=== PATIENT | male | born 1985 | race Caucasian/White ===

== ENCOUNTER 2021-11-10 21:06 | Inpatient (IN) | payer OTHER ==
[~2021-11-10] VITALS: Ht 182.9 cm; Wt 158.1 kg
[~2021-11-10 21:06] MED LIST: AMIT10; HYDACE5 PO; NAPR250; RXOXYACE PO
[2021-11-10 22:33] LABS: International Normalized Ratio 0.95
[2021-11-10 22:38] LABS: Alanine Aminotransfer (ALT/SGP 41 U/L (12-78); Albumin, Blood 3.3 g/dL (3.4-5.0); Albumin/Globulin Ratio 0.8 (0.8-1.8); Alk Phos 68 U/L (50-136); Anion Gap 7 mmol/L (6-16); Aspartate Aminotrans (AST/SGOT 35 U/L (12-37); Bilirubin, Total 0.7 mg/dL (0.1-1.0); Blood Urea Nitrogen 11 mg/dL (8-24); Bun/Creatinine Ratio 10.6 (12.0-20.0); CO2, Blood 32 mmol/L (21-32); Calcium, Blood 9.1 mg/dL (8.5-10.1); Chloride, Blood 100 mmol/L (98-108); Creatinine, Blood 1.04 mg/dL (0.60-1.20); Glomerular Filtration Rate >60 (60-); Glucose, Blood 108 mg/dL (70-99); Sodium, Blood 139 mmol/L (136-145); Total Protein, Blood 7.3 g/dL (6.4-8.2); Troponin I 0.024 ng/mL (0.000-0.040)
[2021-11-10 22:43] LABS: BASOPHILS ABSOLUTE AUTO 0.06 K/mm3 (0.00-0.23); BASOPHILS PERCENT AUTO 1 % (0-2); EOSINOPHILS ABSOLUTE AUTO 0.33 K/mm3 (0.00-0.68); EOSINOPHILS PERCENT AUTO 4 % (0-6); Hematocrit 34.9 % (37.0-53.0); IMMATURE GRAN ABSOLUTE AUTO 0.03 K/mm3 (0.00-0.10); IMMATURE GRAN PERCENT AUTO 0 % (0-1); LYMPHOCYTES ABSOLUTE AUTO 1.95 K/mm3 (0.84-5.20); LYMPHOCYTES PERCENT AUTO 20 % (21-46); MONOCYTES ABSOLUTE AUTO 0.58 K/mm3 (0.16-1.47); MONOCYTES PERCENT AUTO 6 % (4-13); Mean Corpuscular HGB 28.8 pg (26.0-34.0); Mean Corpuscular HGB Conc 34.4 g/dL (31.5-36.5); Mean Corpuscular Volume 84 fL (80-100); Mean Platelet Volume 10.2 fL (9.1-12.4); NEUTROPHILS PERCENT AUTO 69 % (41-73); Platelet Count 371 K/mm3 (150-400); RDW Coefficient Variation 13.2 % (11.7-14.2); RDW Standard Deviation 39.8 fL (35.1-46.3); Red Blood Cell Count 4.17 M/mm3 (4.30-5.90); White Blood Cell Count 9.55 K/mm3 (4.00-11.30)
[2021-11-11 04:20] LABS: Troponin I 0.024 ng/mL (0.000-0.040)
[2021-11-11 06:43] LABS: CHOL/HDL RATIO 4.2; Cholesterol 192 mg/dL (50-200); HDL Cholesterol 46 mg/dL (>39); LDL/HDL RATIO 2.8; Low Density Lipoprotein Chol 127 mg/dL (0-110); Triglycerides 95 mg/dL (30-140); Very Low Density Lipoprot Chol 19 mg/dL (6-28)
[2021-11-11 08:28] LABS: Influenza B, PCR NEGATIVE (NEGATIVE); Resp Syncytial Virus, PCR NEGATIVE (NEGATIVE); SARS-Cov-2 (COVID-19) PCR, MMC NEGATIVE (NEGATIVE)
[2021-11-11 08:48] LABS: Influenza A, PCR POSITIVE (NEGATIVE)
--- NOTE | 2021-11-11 17:41 | NUR ---
ARRIVAL TO PCU/SHIFT SUMMARY PATIENT ARRIVED AT 1635. A/OX4. TRANSFERED TO PCU BED WITH A STAND BY. PATIENT REPORTS CHEST PRESSURE THAT IS CONSTANT, AND HAS REMAINED THE SAME THROUGHOUT THE DAY. PATIENT IS HYPERTENSIVE AND RECEIVED MED PER EMAR. PATIENT HAS A FEVER AND RECEIVED MEDS PER EMAR AND HAS ICE ON FOREHEAD AND ARM PITS. PATIENT SIGNIFCANT OTHER IS AT BEDSIDE. PATIENT BECOMES SHORT OF BREATH WITH EXERTION. PATIENT REPORTS NO CHEST PAIN OR NUMBNESS OR TINGLING. CALL LIGHT WITHIN REACH AND BED IN LOWEST POSITION. WILL CONTINUE TO MONITOR AND PROVIDE CARE UNTIL HANF OFF WITH NEXT SHIFT.
[2021-11-11 19:09] LABS: Mean Platelet Volume 10.2 fL (9.1-12.4); Platelet Count 322 K/mm3 (150-400)
[2021-11-11 19:39] LABS: Anti-Xa UFH, PHA Monitoring <0.10 IU/mL; International Normalized Ratio 1.06; Prothrombin Time Results 11.1 Sec (9.7-11.5)
[2021-11-12 02:09] LABS: BASOPHILS ABSOLUTE AUTO 0.06 K/mm3 (0.00-0.23); BASOPHILS PERCENT AUTO 1 % (0-2); EOSINOPHILS ABSOLUTE AUTO 0.07 K/mm3 (0.00-0.68); EOSINOPHILS PERCENT AUTO 1 % (0-6); Hematocrit 32.5 % (37.0-53.0); Hemoglobin 11.1 g/dL (13.5-17.5); IMMATURE GRAN ABSOLUTE AUTO 0.02 K/mm3 (0.00-0.10); IMMATURE GRAN PERCENT AUTO 0 % (0-1); LYMPHOCYTES ABSOLUTE AUTO 0.52 K/mm3 (0.84-5.20); LYMPHOCYTES PERCENT AUTO 7 % (21-46); MONOCYTES ABSOLUTE AUTO 0.82 K/mm3 (0.16-1.47); MONOCYTES PERCENT AUTO 11 % (4-13); Mean Corpuscular HGB Conc 34.2 g/dL (31.5-36.5); Mean Corpuscular Volume 85 fL (80-100); NEUTROPHILS ABSOLUTE AUTO 5.73 K/mm3 (1.96-9.15); NEUTROPHILS PERCENT AUTO 79 % (41-73); NRBC ABSOLUTE 0.02 K/mm3 (0.00-0.02); NRBC Auto 0.3 /100 WBC (0.0-0.2); Platelet Count 313 K/mm3 (150-400); RDW Coefficient Variation 13.9 % (11.7-14.2); Red Blood Cell Count 3.83 M/mm3 (4.30-5.90); White Blood Cell Count 7.22 K/mm3 (4.00-11.30)
[2021-11-12 02:27] LABS: Anion Gap 9 mmol/L (6-16); Blood Urea Nitrogen 17 mg/dL (8-24); Bun/Creatinine Ratio 13.5 (12.0-20.0); CO2, Blood 28 mmol/L (21-32); Calcium, Blood 8.3 mg/dL (8.5-10.1); Chloride, Blood 99 mmol/L (98-108); Creatinine, Blood 1.26 mg/dL (0.60-1.20); Glomerular Filtration Rate >60 (60-); Glucose, Blood 109 mg/dL (70-99); Potassium, Blood 2.8 mmol/L (3.5-5.5); Sodium, Blood 136 mmol/L (136-145)
--- NOTE | 2021-11-12 05:57 | NUR ---
END OF SHIFT SUMMARY: I HAD TO CONTACT THE DOCTOR OF A CRITICAL LAB OF TROP 1.080 WHICH WAS AN INCREASE, HOWEVER, PATIENT BLOOD PRESSURE WITH PRN HYDRALAZINE AND PM CLONIDINE, AND CONTROLLING FEVER HAD HELPED HIS BP WELL. NO NEW ORDERS AFTER CONTACTING DR. JONES WAS ON HOLD DUE TO VERY LARGE HEMATOMA EXTENDING FROM RIGHT ABD TO RIGHT FLANK, CHEST PAIN HAS IMPROVED WITH Q4 NITROPASTE. PATIENT HAD LARGE AMOUNT OF LOOSE STOOL, SHOWERED, AND HAS BEEN RESTING MOST OF THE NIGHT. WILL CONTINUE TO MONITOR.
--- NOTE | 2021-11-12 09:28 | NUR ---
CARE ASSUMPTION PATIENT ALERT AND ORIENTATED X4. VSS. REPEAT EKG DONE THIS AM DUE TO SBP BEING LESS THAN 130. PATIENT REPORTS CHEST PAIN 1/10 THAT FEELS LIKE A PRESSURE, BUT IS MILD. NITRO PASTE IN PLACE. PATIENT REPORTS NO PAIN, NUMBNESS OR TINGLING, HEADACHE OR SHORTNESS OF BREATH AT REST. PATIENT BECOMES SHORT OF BREATH WITH EXERTION. PATIENT IS INDEPENDENT IN THE ROOM BUT REMINDED PATIENT TO CALL IF PATIENT FEELS LIGHT HEADED WHEN TRYING TO GET UP, SO WE CAN BE THERE A STAND BY ASSIST. PATIENT IS CURRENTLY SLEEPING, WHEN PATIENT SLEEP HE SNORES, HE DOES HAVE SLEEP APNEA. CALL LIGHT IS WITHIN REACH AND BED IN LOWEST POSITION. SEE SHIFT ASSESSMENT FOR ASSESSMENT ON PATIENT. WILL CONTINUE TO MONITOR AND PROVIDE CARE.
[2021-11-12 09:31] LABS: CHOL/HDL RATIO 3.8; Cholesterol 149 mg/dL (50-200); HDL Cholesterol 39 mg/dL (>39); LDL/HDL RATIO 2.4; Low Density Lipoprotein Chol 93 mg/dL (0-110); Triglycerides 83 mg/dL (30-140); Very Low Density Lipoprot Chol 16 mg/dL (6-28)
[2021-11-12 14:49] LABS: Anion Gap 9 mmol/L (6-16); Blood Urea Nitrogen 23 mg/dL (8-24); Bun/Creatinine Ratio 17.3 (12.0-20.0); CO2, Blood 28 mmol/L (21-32); Calcium, Blood 8.7 mg/dL (8.5-10.1); Chloride, Blood 100 mmol/L (98-108); Creatinine, Blood 1.33 mg/dL (0.60-1.20); Glomerular Filtration Rate >60 (60-); Glucose, Blood 100 mg/dL (70-99); Potassium, Blood 3.1 mmol/L (3.5-5.5); Sodium, Blood 137 mmol/L (136-145)
[2021-11-12 16:56] LABS: Hematocrit 32.7 % (37.0-53.0); Hemoglobin 11.3 g/dL (13.5-17.5)
--- NOTE | 2021-11-12 17:04 | NUR ---
SHIFT SUMMARY PATIENT IS A/OX4. VSS. PATIENT REPORTS NO CHEST PAIN AT THIS TIME. PATIENT SITTING IN ROOM WITH SIGNIFICANT OTHER IN ROOM WATCHING FOOTBALL. NO ACUTE CHANGES THIS SHIFT. PATIENT INDEPENDENT IN THE ROOM. BED IN LOWEST POSITION AND CALL LIGHT WITHIN REACH. WILL CONTINUE TO MONITOR AND PROVIDE CARE UNTIL HAND OFF WITH NEXT SHIFT.
[2021-11-13 05:17] LABS: Hematocrit 36.8 % (37.0-53.0); Hemoglobin 12.5 g/dL (13.5-17.5); Mean Corpuscular HGB 28.8 pg (26.0-34.0); Mean Corpuscular Volume 85 fL (80-100); Mean Platelet Volume 10.1 fL (9.1-12.4); Platelet Count 374 K/mm3 (150-400); RDW Coefficient Variation 13.7 % (11.7-14.2); RDW Standard Deviation 42.8 fL (35.1-46.3); Red Blood Cell Count 4.34 M/mm3 (4.30-5.90); White Blood Cell Count 7.24 K/mm3 (4.00-11.30)
--- NOTE | 2021-11-13 05:33 | NUR ---
SHIFT SUMMARY NO ACUTE CHANGES THIS SHIFT. VSS. AXO. HTN, SBP 1560. PT NOT WANTING HYDRALZINE HE BELIEVES IT GIVES HIM DIARRHEA. BP'S, WHEN TAKEN HAVE BEEN IN SITTING POSITION AND OFTEN AFTER PT HAD BEEN WALKING. PT WITH NITRO PATCH Q4, PT STATES LITTLE TO NO CP/PRESSURE CURRENTLY. ECCHYMOSIS TO ABD MARKED WITH PEN, TENDER TO PALPATION. NO GROWTH NOTED ON MARGINS. OTHERWISE, PT INDEPENDENT IN ROOM. REMAINS IN ISOLATION. USES CALL LIGHT APPRORPIATELY.
--- NOTE | 2021-11-13 08:00 | NUR ---
INITIAL ASSESSMENT: Patient is resting with his eyes closed, easily awakens with verbal stimuli. Patient reports minimal pain to right abd where hematoma is he rates this at a 2/10. He denies chest pain at this time. HRR. LS Dim in the bases, biox wnl on RA. He has an occasional productive cough with thin clear sputum. BT +, patient reports he was having diarrhea last night but it has started to ease this morning. He has a large hemotoma that starts at his umbillicus and wraps around to his side, it is demarkated-the hematoma is within the demarkation. PPP. VSS-blood pressure remains a little on the high side. Dr. Ramos added some amlodipine to his AM meds. AM meds given at this time. Patient denies other needs. Call light in reach. Will continue to monitor.
--- NOTE | 2021-11-13 10:15 | NUR ---
Update: Hep gtt started at 15 units/kg/hr. Patient C/O 7/10 GONZALEZ, medicated with tylenol. Patient states he gets migraines at home and frequently takes Excedrin, Dr. Ramos notified-see new orders. Patient is resting comfortably at this time and denies other needs. Will continue to monitor.
--- NOTE | 2021-11-13 12:30 | NUR ---
Update: Patient ate a banana and vomited approx 200 cc. Call placed to , pt given Zofran for nausea. VSS. Patient denies needs at this time. Call light in reach, will continue to monitor.
[2021-11-13 16:14] LABS: Hematocrit 38.1 % (37.0-53.0); Hemoglobin 13.1 g/dL (13.5-17.5)
--- NOTE | 2021-11-13 17:29 | NUR ---
SUMMARY: Patient was admitted with hypertensive urgency, Flu, and possible NSTEMI. He has been alert and oriented for me t/o the shift. Some c/o mild pain in his abd where he has a large hematoma. His biggest complaint was of a GONZALEZ, he was medicated with Excedrin-pt states he has a history of migraines. Hep gtt started today at 15 units/kg/hr-no drop in H/H next lab value to be drawn at 2200. He had an episode if nausea and vomiting this afternoon and has not had much PO intake. Zofran given for nausea. Blood pressure is a little bit better than yesterday but he is still slightly hypertensive. No complaints of chest pain this shift. Will report to oncoming RN.
[2021-11-14 04:51] LABS: Hematocrit 34.7 % (37.0-53.0); Mean Corpuscular HGB 28.7 pg (26.0-34.0); Mean Corpuscular HGB Conc 34.6 g/dL (31.5-36.5); Mean Corpuscular Volume 83 fL (80-100); Mean Platelet Volume 9.7 fL (9.1-12.4); Platelet Count 379 K/mm3 (150-400); RDW Coefficient Variation 13.4 % (11.7-14.2); RDW Standard Deviation 40.6 fL (35.1-46.3); Red Blood Cell Count 4.18 M/mm3 (4.30-5.90); White Blood Cell Count 5.99 K/mm3 (4.00-11.30)
--- NOTE | 2021-11-14 05:06 | NUR ---
shift summary kory acute changes this shift. vss. less htn this shift vs last shift. pt still c/o migraine, initially received orders for immitrex, pt refused saying dutch has had severe reactions to this medication before. orders received for fentanyl, pt hesitent to take this but allowed one dose to some relief as pt slep t afterward. pt npo for angio today. abdominal bruise margins lessened from pen outline. pt remains on heparin gtt. independent in room. using call light appropriately.
[2021-11-14 05:26] LABS: Anion Gap 8 mmol/L (6-16); Blood Urea Nitrogen 16 mg/dL (8-24); Bun/Creatinine Ratio 16.8 (12.0-20.0); CO2, Blood 29 mmol/L (21-32); Calcium, Blood 8.3 mg/dL (8.5-10.1); Chloride, Blood 102 mmol/L (98-108); Creatinine, Blood 0.95 mg/dL (0.60-1.20); Glomerular Filtration Rate >60 (60-); Glucose, Blood 101 mg/dL (70-99); Magnesium, Blood 2.2 mg/dL (1.6-2.4); Potassium, Blood 3.1 mmol/L (3.5-5.5); Sodium, Blood 139 mmol/L (136-145)
[2021-11-14] MEDS ORDERED: AMLO5 PO (16:20)
[2021-11-14] MEDS ORDERED: ZESTRIL40 MG PO (16:21)
--- NOTE | 2021-11-14 17:41 | NUR ---
END OF SHIFT SUMMARY: PATIENT WAS AWAITING ANGIO MOST OF THE DAY, CHEST PAIN WAS IMPROVED WITH HEPARIN RUNNING AT 15 AND Q4 NITRO PASTE. BLOOD PRESSURE WAS NORMOTENSIVE FOR PATIENT THROUGHOUT THE DAY AND INCREASED DURING COMB SETTER OPERATION WHERE HE RECIEVED 3 VERSED, 75MCG FENT, 5000 HEPARIN, AROUND 1600. PATIENT IS BEING ON VITAL TREND, AND IS RESTING PEACEFULLY AT THIS TIME, R RADIAL SITE NO HEMATOMA, OR OOZING, 12 CC IN TR BAND. SULAIMAN WAS INDEPENDENT, WITH A COUPLE UNMEASURED VOIDS, RECIEVED TWO K RIDERS THIS AM. 1 IV IN THE RIGHT AC, LEFT FORARM WAS REMOVED DURING ANGIO, WHICH WAS NEGATIVE AND DISCHARGE HOME AFTER TR BAND RECOVERY. SULAIMAN IS AGREEABLE TO PLAN. IS TENTATIVE PERSON FOR A RIDE.
--- NOTE | 2021-11-14 19:53 | NUR ---
ASSUMPTION OF CARE: 1948 WITNESSED PATIENT EXITING RESTROOM IN STREET [employer]ES CARRYING TELE BOX WITH ANGIO ARM. ASSESSED SITE WNL AND REMOVED 2 CC.
--- NOTE | 2021-11-14 23:31 | NUR ---
DISCHARGE: PATIENT DISCHARGED AT 2320 VIA W/C TO EMERGENCY EXIT WHERE HE WAS PICKED UP IN FAMILY VEHICLE BY SPOUSE. TR BAND WAS FULLY DEFLATED AT 2200 AND MONITORED FOR ANOTHER HOUR. TR BAND WAS REMOVED AND SITE WAS WNL. PATIENT AND FAMILY EDUCATED ON RADIAL SITE CARE, NEW MEDICATIONS, AND FOLLOW UP WITH MDS. PATIENT IN GOOD SPIRITS AND HAPPY TO RETURN TO HIS CHILDREN.
[2021-11-20 06:09] LABS: ALDOS/RENIN RATIO 0.5 (0.0-30.0); ALDOSTERONE 1.4 ng/dL (0.0-30.0)
[2021-11-28] MEDS ORDERED: Ibuprofen600 MG PO (22:08)
== END 2021-11-14 23:28 | disposition home or self-care (01) | DRG 811 ==
LOC: ER 21:06 → ERHOLD 11-11 05:57 → PCU 11-11 05:57 → ERHOLD 11-11 05:57 → ER 11-11 05:57 → PCU 11-11 16:36
PROVIDERS: Hospitalist; Internal Medicine Interventional Cardiology; Physician Assistant; Student in an Organized Health Care Education/Training Program; ADMIT Family Medicine
PROC: 4A023N7 Measurement of Cardiac Sampling and Pressure, Left Heart, Percutaneous Approach (ICD-10-PCS; principal; 2021-11-14)
PROC: B2111ZZ Fluoroscopy of Multiple Coronary Arteries using Low Osmolar Contrast (ICD-10-PCS; 2021-11-14)
PROC: B2151ZZ Fluoroscopy of Left Heart using Low Osmolar Contrast (ICD-10-PCS; 2021-11-14)
DX: D62 Acute posthemorrhagic anemia (principal); I21.A1 Myocardial infarction type 2; I16.1 Hypertensive emergency; Z68.41 Body mass index [BMI] 40.0-44.9, adult; J10.1 Influenza due to other identified influenza virus with other respiratory manifestations; M79.81 Nontraumatic hematoma of soft tissue; I11.0 Hypertensive heart disease with heart failure; E78.5 Hyperlipidemia, unspecified; Z79.899 Other long term (current) drug therapy; Z98.890 Other specified postprocedural states; I16.0 Hypertensive urgency; G47.30 Sleep apnea, unspecified; E87.6 Hypokalemia; E66.01 Morbid (severe) obesity due to excess calories; Z87.891 Personal history of nicotine dependence
CPT/HCPCS: 0241U; 36415; 71046; 74177; 75635; 76937; 80048; 80053; 80061; 82088; 83036; 83690; 83735; 83880; 84132; 84244; 84443; 84484; 85014; 85018; 85025; 85027; 85049; 85520; 85610; 85730; 90686; 93005; 93010; 93306; 93458; 96372; 96374; 96375; 96376; 99152; 99153; 99285-25; A9270; C1769; C1887; C1894; G0378; J0360; J1644; J1940; J2250; J2405; J3010; J7030; J7050; Q9967

== ENCOUNTER 2023-05-06 18:02 | Inpatient (IN) | payer OTHER ==
[~2023-05-06] VITALS: Ht 182.9 cm; Wt 157.8 kg
[~2023-05-06 18:02] MED LIST changes: +AMLO5 PO; +Ibuprofen600 MG PO; +ZESTRIL40 MG PO
[2023-05-06 19:09] LABS: BASOPHILS ABSOLUTE AUTO 0.05 K/mm3 (0.00-0.23); BASOPHILS PERCENT AUTO 0 % (0-2); EOSINOPHILS ABSOLUTE AUTO 0.05 K/mm3 (0.00-0.68); EOSINOPHILS PERCENT AUTO 0 % (0-6); Hematocrit 44.1 % (37.0-53.0); Hemoglobin 15.6 g/dL (13.5-17.5); IMMATURE GRAN ABSOLUTE AUTO 0.06 K/mm3 (0.00-0.10); IMMATURE GRAN PERCENT AUTO 0 % (0-1); LYMPHOCYTES ABSOLUTE AUTO 0.78 K/mm3 (0.84-5.20); LYMPHOCYTES PERCENT AUTO 5 % (21-46); MONOCYTES ABSOLUTE AUTO 0.68 K/mm3 (0.16-1.47); MONOCYTES PERCENT AUTO 4 % (4-13); Mean Corpuscular HGB Conc 35.4 g/dL (31.5-36.5); Mean Corpuscular Volume 82 fL (80-100); NEUTROPHILS ABSOLUTE AUTO 14.04 K/mm3 (1.96-9.15); NEUTROPHILS PERCENT AUTO 90 % (41-73); Platelet Count 287 K/mm3 (150-400); RDW Coefficient Variation 13.4 % (11.7-14.2); RDW Standard Deviation 39.8 fL (35.1-46.3); Red Blood Cell Count 5.38 M/mm3 (4.30-5.90); White Blood Cell Count 15.66 K/mm3 (4.00-11.30)
[2023-05-06 19:29] LABS: Albumin, Blood 3.8 g/dL (3.4-5.0); Albumin/Globulin Ratio 1.1 (0.8-1.8); Bilirubin, Total 0.6 mg/dL (0.1-1.0); Bun/Creatinine Ratio 13.1 (12.0-20.0); Calcium, Blood 8.7 mg/dL (8.5-10.1); Globulin, Blood 3.5 g/dL (2.2-4.0); Total Protein, Blood 7.3 g/dL (6.4-8.2)
[2023-05-06 20:40] LABS: Magnesium, Blood 1.5 mg/dL (1.6-2.4)
[2023-05-07] VITALS (10 sets, daily range): BP systolic 175–244; BP diastolic 96–135
[2023-05-07] MEDS ORDERED: AMLODIPINE BESYL5 MG PO (01:39)
--- NOTE | 2023-05-07 03:01 | NUR ---
ADMIT NSG NOTE 37 YR OLD MALE ADMITTED TO FLOOR FROM THE ED WITH DX OF RIGHT LEG CECLLULITIS/SEPSIS. ELEVATED WBC, SWELLING AND REDDENED DISCOLORATION OF RIGHT JAQUEZ. ALERT AND ORIENTED X 4. IVF OF NS STARTED AT 125 ML/HR ORDERED. WILL BEGIN ANTIBIOTICS IV - SEE MAUREEN FORCASTRO. ED RN REPORTED PT REPORTED LEG PAIN, NAUSEA AND SOME VERTIGO WITH SOB PRIOR TO COMING IN TO ED FOR TREATMENT. ORIENTED TO USE OF CALL LIGHT, CALL LIGHT IN REACH. WILL MONITOR. NOTE ED NOTATION OF PT RECEIVING FIRE IGNITION TEACHING IN THE ED.
--- NOTE | 2023-05-07 04:30 | NUR ---
DEPARTURE CLERK SUMMARY BP ELEVATED, SLIGHT FEVER, OTHERWISE VSS. HX OF HIGH BP. ADMITTED WITH DX OF CELLULITIS OF RIGHT LEG AND SEPSIS. IVF OF NS INFUSING AT 125 ML/HR. IV ANTIBIOTICS INFUSING WELL - SEE MAR FOR DETAILS. ALERT AND ORIENTED X 4. NO C/O CHEST PAIN. AMBULATES WITH CANE. RESTING QUIETLY WITH FEW INTERRUPTIONS. CALL LIGHT IN REACH. WILL CONTINUE TO MONITOR
--- NOTE | 2023-05-07 07:20 | NUR ---
ASSUMED CARE: PT RESTING QUIETLY AT THIS TIME. NS RUNNING PER ORDERS. DENIES NEEDS OR CONCERNS AT THIS TIME.
[2023-05-07 08:12] LABS: BASOPHILS ABSOLUTE AUTO 0.03 K/mm3 (0.00-0.23); BASOPHILS PERCENT AUTO 0 % (0-2); EOSINOPHILS ABSOLUTE AUTO 0.02 K/mm3 (0.00-0.68); EOSINOPHILS PERCENT AUTO 0 % (0-6); Hematocrit 40.7 % (37.0-53.0); Hemoglobin 14.8 g/dL (13.5-17.5); IMMATURE GRAN ABSOLUTE AUTO 0.03 K/mm3 (0.00-0.10); IMMATURE GRAN PERCENT AUTO 0 % (0-1); LYMPHOCYTES ABSOLUTE AUTO 0.97 K/mm3 (0.84-5.20); LYMPHOCYTES PERCENT AUTO 8 % (21-46); MONOCYTES ABSOLUTE AUTO 0.76 K/mm3 (0.16-1.47); MONOCYTES PERCENT AUTO 6 % (4-13); Mean Corpuscular HGB 29.4 pg (26.0-34.0); Mean Corpuscular HGB Conc 36.4 g/dL (31.5-36.5); Mean Corpuscular Volume 81 fL (80-100); Mean Platelet Volume 9.5 fL (9.1-12.4); NEUTROPHILS PERCENT AUTO 86 % (41-73); Platelet Count 253 K/mm3 (150-400); RDW Coefficient Variation 13.6 % (11.7-14.2); RDW Standard Deviation 39.9 fL (35.1-46.3); Red Blood Cell Count 5.03 M/mm3 (4.30-5.90); White Blood Cell Count 12.51 K/mm3 (4.00-11.30)
[2023-05-07 08:42] LABS: Albumin, Blood 3.6 g/dL (3.4-5.0); Bilirubin, Total 0.6 mg/dL (0.1-1.0); Bun/Creatinine Ratio 11.5 (12.0-20.0); Calcium, Blood 8.4 mg/dL (8.5-10.1); Creatinine, Blood 1.13 mg/dL (0.60-1.20); Globulin, Blood 3.5 g/dL (2.2-4.0); Total Protein, Blood 7.1 g/dL (6.4-8.2)
--- NOTE | 2023-05-07 15:04 | NUR ---
CALL TO DR BABCOCK TO REPORT PT'S ELEVATED BLOOD PRESSURE. AWARE THAT IT IS OUTSIDE OF TIME CONSTRAINT TO GIVE FURTHER PRN ORDERS. AWAITING NEW ORDERS.
--- NOTE | 2023-05-07 18:40 | NUR ---
SHIFT SUMMARY: PT'S BLOOD PRESSURE HAS REQUIRED TREATMENT ALL SHIFT AND HAS BEEN ELEVATED T/O DAY. CALL TO DR BABCOCK TO DISCUSS WITH HIM, WELL ASK IF IV FLUIDS SHOULD CONTINUE AT 125/HR. STATES TO KEEP FLUIDS RUNNING AT THIS TIME DUE TO THE SEPSIS DIAGNOSIS. RELAYED TO DR STERN THAT A BORDER WAS DRAWN ON LEG FIRST THING THIS MORNING AND IT WAS NOTED THIS AFTERNOON THAT THE REDNESS IS SPREADING OUTSIDE OF THE BORDERS. DR CAME TO EVALUATE AND NOTED WARMTH AND NEW BUMPS AND TENDERNESS TO UNDERSIDE OF LEG. DR TO REVIEW FOR NEW ORDERS.
--- NOTE | 2023-05-07 22:58 | NUR ---
NURSE NOTE PT RECEIVED FIRE IGNITION TEACHING - NO SMOKING ON OXYGFEN, NO SMOKING IN THE HOSPITAL EARLIER. CALL LIGHT IN REACH
[2023-05-08] VITALS (8 sets, daily range): BP systolic 147–182; BP diastolic 85–98
--- NOTE | 2023-05-08 03:50 | NUR ---
LIME PULLER SUMMARY AT SHIFT COMMENCE, BP QUITE ELEVATED. MD WAS AT BEDSIDE WITH AM RN DISCUSSING PLAN OF CARE. ANTIHYPERTENSIVE MEDS WERE ORDERED. BP WAS 216/118, HYDRALAZINE 20 MG IV ADMINISTERED. LATER BP WAS CHECKED, TRENDED DOWN TO 196/104, THEN 153/85. IVF OF NS AT 125 ML/HR AND ANTIBIOTICS ADMINISTERED FOR CELLULITIS OF RIGHT LOWER EXT. RLE REMAINS SWOLLEN WITH REDDENED DISCOLORATION, BUT SEEMS LESS SWOLLEN THAN NOTED 24 HR AGO. PT ALERT AND ORIENTED. HAS BEEN RESTING QUIETLY WITH OCCASIONAL EPISODES OF WAKEFULNESS, WAS UP TO COUCH IN ROOM ONCE. CURRENLTY RESTING QUIETLY. NO NOTED S/S DISTRESS. CALL LIGHT INREACH. WILL CONTINUE TO MONITOR
[2023-05-08 04:48] LABS: BASOPHILS ABSOLUTE AUTO 0.04 K/mm3 (0.00-0.23); BASOPHILS PERCENT AUTO 0 % (0-2); EOSINOPHILS PERCENT AUTO 1 % (0-6); Hemoglobin 14.3 g/dL (13.5-17.5); IMMATURE GRAN ABSOLUTE AUTO 0.04 K/mm3 (0.00-0.10); IMMATURE GRAN PERCENT AUTO 0 % (0-1); LYMPHOCYTES ABSOLUTE AUTO 1.37 K/mm3 (0.84-5.20); LYMPHOCYTES PERCENT AUTO 13 % (21-46); MONOCYTES ABSOLUTE AUTO 1.04 K/mm3 (0.16-1.47); MONOCYTES PERCENT AUTO 10 % (4-13); Mean Corpuscular HGB 28.7 pg (26.0-34.0); Mean Corpuscular HGB Conc 34.9 g/dL (31.5-36.5); Mean Corpuscular Volume 82 fL (80-100); Mean Platelet Volume 9.9 fL (9.1-12.4); NEUTROPHILS ABSOLUTE AUTO 8.39 K/mm3 (1.96-9.15); NEUTROPHILS PERCENT AUTO 76 % (41-73); Platelet Count 245 K/mm3 (150-400); RDW Standard Deviation 41.2 fL (35.1-46.3); Red Blood Cell Count 4.99 M/mm3 (4.30-5.90); White Blood Cell Count 10.98 K/mm3 (4.00-11.30)
[2023-05-08 05:05] LABS: Magnesium, Blood 1.6 mg/dL (1.6-2.4)
--- NOTE | 2023-05-08 17:20 | NUR ---
SHIFT SUMMARY- PT IS A/O, PLESANT AND COOPERATIVE. HE IS EATING AND DRINKING WELL. HE TOOK A SHOWER THIS MORNING. INDEPENDENT IN THE ROOM. BLOOD PRESSURE WAS ELEVATED THIS SHIFT. AFTERNOON VITALS SHOWED A DECREASE IN BP. PT IS CONTINUES ON IV ABX FOR CELLULITIS. PT REPORTS IMPROVMENT IN THAT EXTREMITY. HIS BED IS IN THE LOW POSITON AND CALL LIGHT IS WITIN REACH.
[2023-05-09 04:01] VITALS: BP 150/96
[2023-05-09 05:23] LABS: Albumin, Blood 3.2 g/dL (3.4-5.0); Albumin/Globulin Ratio 0.8 (0.8-1.8); Bilirubin, Total 0.5 mg/dL (0.1-1.0); Bun/Creatinine Ratio 11.8 (12.0-20.0); Calcium, Blood 8.7 mg/dL (8.5-10.1); Creatinine, Blood 1.02 mg/dL (0.60-1.20); Globulin, Blood 3.8 g/dL (2.2-4.0); Potassium, Blood 3.1 mmol/L (3.5-5.5)
[2023-05-09 07:44] VITALS: BP 172/103
[2023-05-09] MEDS ORDERED: LOSARTAN-HCTZ1 EACH PO (12:19)
[2023-05-09] MEDS ORDERED: CEPH500 PO (12:19)
--- NOTE | 2023-05-09 14:34 | NUR ---
PT AWAKE AT START OF SHIFT. MARY AND CO-OP. INDEPENDENT IN RM AND TO BTHRM. DR BABCOCK IN TO SEE PT AND DISCUSS PLAN OF CARE. SWELLING AND CELLULITIS TO RLE IMPROVED. PT REPORTED MUCH BETTER AND ABLE TO WALK W/O PAIN. BP MEDS ADJUSTED AND GIVEN PER EMAR. D/C ORDERS PLACED. MEDS FAXED TO [facility], PER PT REQUEST. D/C INSTRUCTIONS AND MEDICATIONS REVIEWED WITH PT; VERBALIZED UNDERSTANDING. PT'S HERE TO EDUCATIONAL PSYCHOLOGY PROFESSOR PT. ASSISTED OUT VIA W/C BY BI.
== END 2023-05-09 13:35 | disposition home or self-care (01) | DRG 872 ==
LOC: ER 18:02 → MEDS 05-07 01:19
PROVIDERS: Family Medicine; Student in an Organized Health Care Education/Training Program; ADMIT Internal Medicine
DX: A41.9 Sepsis, unspecified organism (principal); Z68.43 Body mass index [BMI] 50.0-59.9, adult; L03.115 Cellulitis of right lower limb; I10 Essential (primary) hypertension; T46.4X6A Underdosing of angiotensin-converting-enzyme inhibitors, initial encounter; T46.1X6A Underdosing of calcium-channel blockers, initial encounter; R77.8 Other specified abnormalities of plasma proteins; E87.6 Hypokalemia; E66.9 Obesity, unspecified; G47.30 Sleep apnea, unspecified; R07.9 Chest pain, unspecified; F12.90 Cannabis use, unspecified, uncomplicated; E83.42 Hypomagnesemia; Z79.811 Long term (current) use of aromatase inhibitors; Z79.899 Other long term (current) drug therapy; Z91.148 Patient's other noncompliance with medication regimen for other reason
CPT/HCPCS: 36415; 71260; 80048; 80053; 83605; 83735; 83880; 84484; 85025; 87040; 93005; 93010; 93971; 96365-59; 96367-59; 96375-59; 99285-25; A9270; J0360; J0690; J1650; J3475; J7030; J7120; Q9967

== ENCOUNTER 2023-10-04 03:13 | Emergency (ER) | payer OTHER ==
[~2023-10-04] VITALS: Ht 182.9 cm; Wt 174.6 kg
[~2023-10-04 03:13] MED LIST changes: +AMLODIPINE BESYL5 MG PO; +CEPH500 PO; +LOSARTAN-HCTZ1 EACH PO
[2023-10-04 04:16] LABS: BASOPHILS ABSOLUTE AUTO 0.08 K/mm3 (0.00-0.23); BASOPHILS PERCENT AUTO 1 % (0-2); EOSINOPHILS ABSOLUTE AUTO 0.19 K/mm3 (0.00-0.68); EOSINOPHILS PERCENT AUTO 2 % (0-6); Hematocrit 47.3 % (37.0-53.0); Hemoglobin 16.3 g/dL (13.5-17.5); IMMATURE GRAN ABSOLUTE AUTO 0.03 K/mm3 (0.00-0.10); IMMATURE GRAN PERCENT AUTO 0 % (0-1); LYMPHOCYTES ABSOLUTE AUTO 2.31 K/mm3 (0.84-5.20); LYMPHOCYTES PERCENT AUTO 26 % (21-46); MONOCYTES ABSOLUTE AUTO 0.59 K/mm3 (0.16-1.47); MONOCYTES PERCENT AUTO 7 % (4-13); Mean Corpuscular HGB 28.5 pg (26.0-34.0); Mean Corpuscular HGB Conc 34.5 g/dL (31.5-36.5); Mean Corpuscular Volume 83 fL (80-100); Mean Platelet Volume 9.9 fL (9.1-12.4); NEUTROPHILS PERCENT AUTO 64 % (41-73); Platelet Count 322 K/mm3 (150-400); RDW Coefficient Variation 13.1 % (11.7-14.2); RDW Standard Deviation 38.9 fL (35.1-46.3); Red Blood Cell Count 5.71 M/mm3 (4.30-5.90)
[2023-10-04 04:43] LABS: Thyroid Stimulating Hormone 3.39 uIU/mL (0.360-4.800)
[2023-10-04 04:44] LABS: Albumin, Blood 3.9 g/dL (3.4-5.0); Bilirubin, Total 0.3 mg/dL (0.1-1.0); Bun/Creatinine Ratio 13.2 (12.0-20.0); Calcium, Blood 9.1 mg/dL (8.5-10.1); Creatinine, Blood 1.14 mg/dL (0.60-1.20); Potassium, Blood 2.9 mmol/L (3.5-5.5); Total Protein, Blood 7.9 g/dL (6.4-8.2)
[2023-10-04 05:56] LABS: Source, Urine Clean Catch
[2023-10-04 06:26] LABS: Appearance, Urine Clear (Clear); Bilirubin, Urine Neg (Neg); Blood, Urine Neg (Neg); Glucose Qualitative, Urine 3+ (Neg); Ketones, Urine Neg (Neg); Leukocyte Esterase, Urine Neg (Neg); Nitrite, Urine Neg (Neg); Protein, Urine Neg (Neg); Urobilinogen, Urine NORM (Normal)
[2023-10-04 06:31] LABS: Color, Urine Pale Yellow (P-Yellow)
[2023-10-04 06:42] VITALS: BP 186/93
[2023-10-04] MEDS ORDERED: Ibuprofen600 MG PO (06:54)
[2023-10-04] MEDS ORDERED: TAMS.4ER PO (06:54)
== END 2023-10-04 07:35 | disposition home or self-care (01) ==
LOC: ER 03:13
PROVIDERS: Emergency Medicine
DX: N13.2 Hydronephrosis with renal and ureteral calculous obstruction (principal); I10 Essential (primary) hypertension; Z79.899 Other long term (current) drug therapy
CPT/HCPCS: 74177; 80053; 81003; 83605; 83690; 84443; 85025; 93005; 93010; 96374; 96375; 96376; 99284-25; A9270; J0360; J1170; J1885; J3010; Q9967

== ENCOUNTER 2023-10-28 16:41 | Inpatient (IN) | payer OTHER ==
[~2023-10-28] VITALS: Ht 185.4 cm; Wt 161.5 kg
[~2023-10-28 16:41] MED LIST changes: +TAMS.4ER PO
[2023-10-28 17:43] LABS: BASOPHILS ABSOLUTE AUTO 0.06 K/mm3 (0.00-0.23); BASOPHILS PERCENT AUTO 0 % (0-2); EOSINOPHILS ABSOLUTE AUTO 0.05 K/mm3 (0.00-0.68); EOSINOPHILS PERCENT AUTO 0 % (0-6); Hematocrit 47.6 % (37.0-53.0); Hemoglobin 16.4 g/dL (13.5-17.5); IMMATURE GRAN ABSOLUTE AUTO 0.04 K/mm3 (0.00-0.10); IMMATURE GRAN PERCENT AUTO 0 % (0-1); LYMPHOCYTES ABSOLUTE AUTO 0.71 K/mm3 (0.84-5.20); LYMPHOCYTES PERCENT AUTO 5 % (21-46); MONOCYTES ABSOLUTE AUTO 0.24 K/mm3 (0.16-1.47); MONOCYTES PERCENT AUTO 2 % (4-13); Mean Corpuscular HGB 28.6 pg (26.0-34.0); Mean Corpuscular HGB Conc 34.5 g/dL (31.5-36.5); Mean Corpuscular Volume 83 fL (80-100); Mean Platelet Volume 9.3 fL (9.1-12.4); NEUTROPHILS ABSOLUTE AUTO 14.67 K/mm3 (1.96-9.15); NEUTROPHILS PERCENT AUTO 93 % (41-73); Platelet Count 304 K/mm3 (150-400); RDW Coefficient Variation 12.8 % (11.7-14.2); RDW Standard Deviation 38.6 fL (35.1-46.3); Red Blood Cell Count 5.74 M/mm3 (4.30-5.90); White Blood Cell Count 15.77 K/mm3 (4.00-11.30)
[2023-10-28 17:59] LABS: Albumin/Globulin Ratio 1.1 (0.8-1.8); Bilirubin, Total 0.5 mg/dL (0.1-1.0); Bun/Creatinine Ratio 9.9 (12.0-20.0); Calcium, Blood 8.7 mg/dL (8.5-10.1); Creatinine, Blood 1.21 mg/dL (0.60-1.20); Globulin, Blood 3.7 g/dL (2.2-4.0); Potassium, Blood 3.2 mmol/L (3.5-5.5); Total Protein, Blood 7.7 g/dL (6.4-8.2)
[2023-10-28 21:06] LABS: U Amphetamine Screen Not Detected; U Methamphetamine Screen Not Detected
[2023-10-28 21:07] LABS: U Barbituate Screen Not Detected; U Benzodiazapine Screen Not Detected; U Buprenorphine Screen Not Detected; U Cannabinoids Screen DETECTED; U Cocaine Screen Not Detected; U Methadone Screen Not Detected; U Opiates Screen Not Detected; U Oxycodone Screen Not Detected; U Phencyclidine Screen Not Detected
[2023-10-29] VITALS (12 sets, daily range): BP systolic 126–202; BP diastolic 71–109
--- NOTE | 2023-10-29 07:00 | NUR ---
REPORT RECEIVED FROM MARTINE Carson RN. ASSUMED CARE OF THIS PT AT APPROX 0700.
[2023-10-29 09:25] LABS: BASOPHILS ABSOLUTE AUTO 0.05 K/mm3 (0.00-0.23); BASOPHILS PERCENT AUTO 0 % (0-2); EOSINOPHILS PERCENT AUTO 1 % (0-6); Hemoglobin 14.5 g/dL (13.5-17.5); IMMATURE GRAN PERCENT AUTO 1 % (0-1); LYMPHOCYTES ABSOLUTE AUTO 0.49 K/mm3 (0.84-5.20); LYMPHOCYTES PERCENT AUTO 3 % (21-46); MONOCYTES ABSOLUTE AUTO 0.45 K/mm3 (0.16-1.47); MONOCYTES PERCENT AUTO 3 % (4-13); Mean Corpuscular HGB 29.2 pg (26.0-34.0); Mean Corpuscular HGB Conc 35.4 g/dL (31.5-36.5); Mean Corpuscular Volume 83 fL (80-100); Mean Platelet Volume 9.2 fL (9.1-12.4); NEUTROPHILS ABSOLUTE AUTO 16.09 K/mm3 (1.96-9.15); NEUTROPHILS PERCENT AUTO 93 % (41-73); Platelet Count 239 K/mm3 (150-400); RDW Coefficient Variation 13.2 % (11.7-14.2); RDW Standard Deviation 39.4 fL (35.1-46.3); Red Blood Cell Count 4.97 M/mm3 (4.30-5.90); White Blood Cell Count 17.28 K/mm3 (4.00-11.30)
[2023-10-29 09:48] LABS: Bun/Creatinine Ratio 12.4 (12.0-20.0); Calcium, Blood 7.6 mg/dL (8.5-10.1); Creatinine, Blood 1.13 mg/dL (0.60-1.20); Potassium, Blood 3.4 mmol/L (3.5-5.5)
--- NOTE | 2023-10-29 17:44 | NUR ---
ADMIT TO ICU / SHIFT SUMMARY: PT HAS BEEN ADMITTED TO ICU-01 FROM ED, THIS RN HAS CONTINUED TO PROVIDE CARE. PT A&O TO ALL, COOPERATIVE W/ CARE. ABLE TO REPOSITIONS SELF PRN FOR COMFORT. LS DIM IN BASES, PT ON RA W/ O2 SATS > 95%. CPAP W/ AUTO PRESSURE SETTINGS HAS BEEN USED WHILE SLEEPING FOR SNORING RESPIRATIONS NOTED AT REST. MONITOR SHOWS ST W/ HR 100-110s, HTN W/ PRN MEDS PER EMAR. BP HAS BEGUN TO IMPROVE THIS EVENING - SEE VS. PT HAS NO GI COMPLAINTS, STS OVERALL HAVING A POOR APPETITE SINCE HAVING WORSENING LEG PAIN & INFECTION SYMPTOMS. VOIDS URINE W/O DIFFICULTY USING URINAL. SKIN CONDITION OVERALL INTACT. RLE REDENNED & HOT TO TOUCH, SMALL NICKEL SIZE BLISTER/ OPEN AREA ON LATERAL CALF LEFT RESEARCH INSTRUMENTATION TECHNICIAN. NO ACUTE CHANGES SINCE ARRIVAL TO ICU. WILL CONTINUE TO MONITOR & REPORT OFF TO ONCOMING RN.
--- NOTE | 2023-10-29 21:30 | NUR ---
PT IS FEBRILE, HYPERTENSIVE AND RATES PAIN 7/10 ON RIGHT LOWER EXTREMITY. PT WAS GIVEN PRN LABETOLOL BUT HYPERTENSION DID NOT RESOLVE. SPOKE TO JESSEE SPOT CHECKER HOSPITALIST. ORDERS GIVEN-SEE EMAR. SYSTOLIC GOAL <180
[2023-10-30] VITALS (20 sets, daily range): BP systolic 140–207; BP diastolic 68–108
[2023-10-30 04:12] LABS: BASOPHILS ABSOLUTE AUTO 0.04 K/mm3 (0.00-0.23); BASOPHILS PERCENT AUTO 0 % (0-2); EOSINOPHILS ABSOLUTE AUTO 0.01 K/mm3 (0.00-0.68); EOSINOPHILS PERCENT AUTO 0 % (0-6); Hematocrit 40.5 % (37.0-53.0); Hemoglobin 14.4 g/dL (13.5-17.5); IMMATURE GRAN ABSOLUTE AUTO 0.06 K/mm3 (0.00-0.10); IMMATURE GRAN PERCENT AUTO 1 % (0-1); LYMPHOCYTES ABSOLUTE AUTO 0.91 K/mm3 (0.84-5.20); LYMPHOCYTES PERCENT AUTO 7 % (21-46); MONOCYTES ABSOLUTE AUTO 0.35 K/mm3 (0.16-1.47); MONOCYTES PERCENT AUTO 3 % (4-13); Mean Corpuscular HGB 28.9 pg (26.0-34.0); Mean Corpuscular HGB Conc 35.6 g/dL (31.5-36.5); Mean Corpuscular Volume 81 fL (80-100); Mean Platelet Volume 9.7 fL (9.1-12.4); NEUTROPHILS ABSOLUTE AUTO 10.88 K/mm3 (1.96-9.15); NEUTROPHILS PERCENT AUTO 89 % (41-73); Platelet Count 206 K/mm3 (150-400); RDW Coefficient Variation 13.4 % (11.7-14.2); RDW Standard Deviation 39.7 fL (35.1-46.3); Red Blood Cell Count 4.99 M/mm3 (4.30-5.90); White Blood Cell Count 12.25 K/mm3 (4.00-11.30)
--- NOTE | 2023-10-30 05:00 | NUR ---
SHIFT SUMMERY PT HAS BEEN ALERT AND ORIENTED X4 OVERNIGHT. HE HAS WORN HIS CPAP WHILE SLEEPING. HE HAS BEEN SR-ST AND HYPERTENSIVE. MEDICATIONS GIVEN FOR BP-SEE EMAR. PT RIGHT LOWER LEG CONTINUES TO BE VERY SWOLLEN,RED, AND WARM TO THE TOUCH. PT HAS BEEN INTERMITTENTLY FEBRILE, TREATED W/MEDS PER EMAR. HE VOIDED IN THE URINAL, NO BM THIS SHIFT. PT HAS HAD NO EPISODES OF ACUTE DISTRESS DISCOMFORT. PAIN MANAGED WELL W/CURRENT MEDICATIONS.
[2023-10-30 05:06] LABS: Bun/Creatinine Ratio 5.5 (12.0-20.0); Calcium, Blood 8.3 mg/dL (8.5-10.1); Creatinine, Blood 1.45 mg/dL (0.60-1.20); Potassium, Blood 2.9 mmol/L (3.5-5.5)
--- NOTE | 2023-10-30 07:48 | NUR ---
0730 Assumed care of patient. Patient is awake watching tv. He denies any pain while laying still in the bed but complains of 8/10 pain with activity such as standing at side of bed. Patient has potassium running iv into his one iv 20g right ac. The iv flushes but it very positional. A new iv was placed to pt right lower forarm. Patient able to move all extremeties w/o difficulty. Patient has good peripheral pulses x 4 extremeties. Patient is due to void.. stated he uses the urinal to void. BP still elevated. Will look at what is available to treat it. Rhythm is sinus tach 100. He is on room air oxygenating well slightly tachypnic at 20-22. His temp is down to 98.9 this morning, he does have a fan blowing on him and he did get tylenol this am.
--- NOTE | 2023-10-30 09:09 | NUR ---
UPDATE: GAVE LABATELOL FO HYPERTENSION SBP GREATER THAN 190.. 10MG IV
--- NOTE | 2023-10-30 12:15 | NUR ---
NOON UPDATE PATIENT HAS BEEN UP IN THE UNIT WALKING WITH A WALKER. HE WALKED TO THE BATHROOM SHOWER AND WAS PRETTY TIRED AFTERWARD AND WAS PUT IN WHEELCHAIR TO GET BACK TO ROOM. PT HAD A BOWEL MOVEMENT PRIOR TO SHOWER. HIS TEMP HAS INCREASED TO 100.4 F. FAN ON PT. HE IS EATTING LUNCH W/O ASSITANCE. HE IS EAGER TO GET BETTER TO GO HOME. ANTIBIOTICS GIVEN IV. SBP LESS THAN 160 AT THIS TIME.
--- NOTE | 2023-10-30 15:50 | NUR ---
UPDATE 1500 PATIENT RESTING IN BED AND OXYGENATION DROPPED TO 82% ON ROOM AIR. PT WAS REQUESTED TO PUT CPAP ON WHILE AT REST WHICH HE DID. OXYGENATION BETTER AT 94% ON CPAP 13CM H20 AT REST. BP BETTER AT THIS TIME HOWEVER PT DID HAVE TO HAVE ANOTHER DOSE OF LABETALOL IV THIS AFTERNOON FOR SBP GREATER THAN 160.
--- NOTE | 2023-10-30 18:33 | NUR ---
END OF SHIFT NOTE PATIENT HAS BEEN ABLE TO BE UP OUT OF BED SINCE DINNER. HE ATE ABOUT 30% FROM HIS DINNER. HE IS EAGER TO GO HOME AND DOING THINGS THAT CAN AIDE IN GETTING HIM THERE. HE HAS BEEN WALKING IN THE UNIT TWICE TODAY DOING ABOUT 120 FEET LAPS AT A TIME. HE STATES HE FEELS BETTER AFTER THE SECOND LAP. HIS PAIN IS UP TO A 7/10 AFTER THE WALK HOWEVER AND TYLENOL WAS GIVEN FOR PAIN MANAGEMENT. HIS FEVER HAS BEEN HIGH 100.4 TODAY AND DOWN TO 98.9F. HIS BP HAS REMAINED ELEVATED HOWEVER SBP LOW AT 145 AND HIGH 205. HE HAS GOTTEN LABETOLOL 10MG IV TWICE TODAY SO FAR. FAMILY IS ON THERE WAY IN FOR A SHORT VISIT THIS EVENING. WILL GIVE REPORT TO NEXT SHIFT TO RESUME CARE.
[2023-10-31] VITALS (7 sets, daily range): BP systolic 142–192; BP diastolic 71–107
[2023-10-31 03:49] LABS: BASOPHILS ABSOLUTE AUTO 0.02 K/mm3 (0.00-0.23); BASOPHILS PERCENT AUTO 0 % (0-2); EOSINOPHILS ABSOLUTE AUTO 0.15 K/mm3 (0.00-0.68); EOSINOPHILS PERCENT AUTO 1 % (0-6); Hematocrit 37.6 % (37.0-53.0); Hemoglobin 12.9 g/dL (13.5-17.5); IMMATURE GRAN ABSOLUTE AUTO 0.05 K/mm3 (0.00-0.10); IMMATURE GRAN PERCENT AUTO 1 % (0-1); LYMPHOCYTES ABSOLUTE AUTO 0.82 K/mm3 (0.84-5.20); LYMPHOCYTES PERCENT AUTO 8 % (21-46); MONOCYTES ABSOLUTE AUTO 0.56 K/mm3 (0.16-1.47); MONOCYTES PERCENT AUTO 5 % (4-13); Mean Corpuscular HGB 28.1 pg (26.0-34.0); Mean Corpuscular HGB Conc 34.3 g/dL (31.5-36.5); Mean Corpuscular Volume 82 fL (80-100); Mean Platelet Volume 9.9 fL (9.1-12.4); NEUTROPHILS ABSOLUTE AUTO 8.92 K/mm3 (1.96-9.15); NEUTROPHILS PERCENT AUTO 85 % (41-73); Platelet Count 201 K/mm3 (150-400); RDW Coefficient Variation 13.6 % (11.7-14.2); RDW Standard Deviation 41.1 fL (35.1-46.3); Red Blood Cell Count 4.59 M/mm3 (4.30-5.90); White Blood Cell Count 10.52 K/mm3 (4.00-11.30)
[2023-10-31 04:09] LABS: Bun/Creatinine Ratio 13.5 (12.0-20.0); Calcium, Blood 8.3 mg/dL (8.5-10.1); Creatinine, Blood 1.33 mg/dL (0.60-1.20); Potassium, Blood 2.8 mmol/L (3.5-5.5)
--- NOTE | 2023-10-31 05:17 | NUR ---
SHIFT SUMMERY PT IS ALERT AND ORIENTED X4, COMPLIANT W/CARE. WEARS CPAP WHILE SLEEPING. AMBULATES TO BEDSIDE COMMODE, CONTINENT OF B/B. BP HAS NOT REQUIRED PRN MEDICATION THIS SHIFT. HE HAS REMAINED AFEBRILE OVERNIGHT. RIGHT LOWER LEG REMAINS SWOLLEN,RED, AND WARM TO THE TOUCH. PT HAS BEEN MEDICATED WHEN NEEDED-SEE EMAR. PT HAS BEEN SR-ST ON THE COMMERCIAL HVAC TECHNICIAN. POTASSIUM WAS LOW ON AM LABS, DR ARCOS NOTIFIED, ORDERS GIVEN-SEE EMAR. PT HAS HAD NO ACUTE DISTRESS OR CHANGES OVERNIGHT.
--- NOTE | 2023-10-31 08:19 | NUR ---
Assumed care of pt at 0700. Report received from Rosa DIAZ. Pt awake, on room air. SpO2 90% or greater. SR per monitor. PCU status
--- NOTE | 2023-10-31 17:10 | NUR ---
SUMMARY Patient is medical floor status without telemetry. Neuro/Musc: Answers questions, follows commands, verbalizes needs. Pleasant and cooperative with care. Ambulates independently in room. Ambulated around 2nd floor today with significant other. Moves all extremities with equal strength and range of motion. Resp: Lungs clear t/o. Pt wears CPAP while sleeping. Cardiac: Continuous heart monitoring discontinued this shift. GI: Good appetite. Tolerating PO intake well. : Voids into toilet independently. Skin: Unchanged from initial assessment.
--- NOTE | 2023-10-31 19:46 | NUR ---
PT TRANSFERED FROM ICU 01 WITH ALL BELONGINGS @ 0915. REPORT TAKEN FROM COMMERCIAL RELIEF DRIVER.
[2023-11-01 05:54] VITALS: BP 149/84
--- NOTE | 2023-11-01 05:55 | NUR ---
SHIFT SUMMARY NOC TRANSFER FROM ICU 01. PT HAS RLE CELLULITIS/BACTEREMIA RECEIVING ANCEG Q8H. PT HAD ELEVATED BP UPON TRANSFER AND GIVEN IV HYDRALAZINE WHICH LOWERED BP. PT IS A/O X 4. INDEPENDENT WITH FWW AND CONTINENT. WEARS CPAP FOR SLEEPING. PT EXPECTED TO DISCHARGE HOME TODAY OR TOMORROW, AWAITING POTASSIUM IMPROVEMENT. PT IS CURRENTLY RESTING WITH BED IN LOWEST POSITION, AND CALL LIGHT WITHIN REACH.
[2023-11-01 05:57] LABS: BASOPHILS ABSOLUTE AUTO 0.05 K/mm3 (0.00-0.23); BASOPHILS PERCENT AUTO 1 % (0-2); EOSINOPHILS ABSOLUTE AUTO 0.24 K/mm3 (0.00-0.68); EOSINOPHILS PERCENT AUTO 3 % (0-6); Hemoglobin 13.2 g/dL (13.5-17.5); IMMATURE GRAN ABSOLUTE AUTO 0.06 K/mm3 (0.00-0.10); IMMATURE GRAN PERCENT AUTO 1 % (0-1); LYMPHOCYTES PERCENT AUTO 12 % (21-46); MONOCYTES ABSOLUTE AUTO 1.05 K/mm3 (0.16-1.47); MONOCYTES PERCENT AUTO 11 % (4-13); Mean Corpuscular HGB 28.8 pg (26.0-34.0); Mean Corpuscular HGB Conc 34.7 g/dL (31.5-36.5); Mean Corpuscular Volume 83 fL (80-100); Mean Platelet Volume 10.2 fL (9.1-12.4); NEUTROPHILS ABSOLUTE AUTO 7.07 K/mm3 (1.96-9.15); NEUTROPHILS PERCENT AUTO 73 % (41-73); Platelet Count 235 K/mm3 (150-400); RDW Coefficient Variation 13.7 % (11.7-14.2); RDW Standard Deviation 41.1 fL (35.1-46.3); Red Blood Cell Count 4.58 M/mm3 (4.30-5.90); White Blood Cell Count 9.67 K/mm3 (4.00-11.30)
[2023-11-01 06:12] LABS: Calcium, Blood 8.7 mg/dL (8.5-10.1); Creatinine, Blood 1.2 mg/dL (0.60-1.20); Magnesium, Blood 2.1 mg/dL (1.6-2.4); Potassium, Blood 2.9 mmol/L (3.5-5.5)
[2023-11-01 07:34] VITALS: BP 164/81
[2023-11-01] MEDS ORDERED: TAMS.4ER PO (12:46)
[2023-11-01] MEDS ORDERED: VISBIOME 112.51 EACH PO (12:46)
[2023-11-01] MEDS ORDERED: CATAPRES0.1 MG PO (12:46)
[2023-11-01] MEDS ORDERED: CEFD300 PO (12:47)
[2023-11-01 13:23] LABS: Bun/Creatinine Ratio 15.2 (12.0-20.0); Calcium, Blood 8.8 mg/dL (8.5-10.1); Creatinine, Blood 1.12 mg/dL (0.60-1.20); Potassium, Blood 3.1 mmol/L (3.5-5.5)
[2023-11-01] MEDS ORDERED: KLOR-CON 1010 ME9 PO (14:10)
--- NOTE | 2023-11-01 14:30 | NUR ---
DISCHARGE NOTE PT DISCHARGED HOME AT APPROX 14:30. PT PROVIDED W/ VERBAL AND WRITTTEN INSTRUCTIONS AND DEMONSTRATED UNDERSTANDING. PT A&OX4, VSS, AMB IND, TOLERATING PO, VOIDING, AND DENIED PAIN. BELONGINGS WERE RETURNED AND PT ESCOURTED OUT BY BI TRIPP.
[2023-11-02 06:38] LABS: ALDOSTERONE <3.0 ng/dL; ALDOSTERONE/RENINACTIVITY CALC <1.0 ratio (<=25.0); RENIN ACTIVITY 3.1 ng/mL/hr
== END 2023-11-01 14:28 | disposition home or self-care (01) | DRG 872 ==
LOC: ER 16:41 → ICUE 20:44 → ER 20:44 → ERHOLD 20:44 → PCU 20:44 → ICUE 10-29 14:06 → MEDS 10-31 19:33 → ENPENDDIS 11-01 10:17 → MEDS 11-01 14:28
PROVIDERS: Emergency Medicine; Family Medicine; Physician Assistant; Student in an Organized Health Care Education/Training Program; ADMIT Hospitalist
DX: A40.0 Sepsis due to streptococcus, group A (principal); L03.115 Cellulitis of right lower limb; N17.9 Acute kidney failure, unspecified; E87.20 Acidosis, unspecified; R65.20 Severe sepsis without septic shock; I10 Essential (primary) hypertension; E87.6 Hypokalemia; N20.0 Calculus of kidney; G47.33 Obstructive sleep apnea (adult) (pediatric); K74.60 Unspecified cirrhosis of liver; Z91.148 Patient's other noncompliance with medication regimen for other reason; Z87.891 Personal history of nicotine dependence
CPT/HCPCS: 36415; 73701; 80048; 80053; 82088; 83605; 83690; 83735; 84132; 84244; 85025; 87040; 87147; 93005; 93010; 93306; 94660; 94762; 96361; 96365-59; 96375; 96376; 99284-25; A9270; J0360; J0690; J0692; J1170; J1650; J1885; J2405; J3370; J3475; J3480; J7030; J7050; J7120; Q9967

== ENCOUNTER 2023-11-07 11:48 | Emergency (ER) | payer OTHER ==
[~2023-11-07] VITALS: Ht 185.4 cm; Wt 117.9 kg
[~2023-11-07 11:48] MED LIST changes: +CATAPRES0.1 MG PO; +CEFD300 PO; +KLOR-CON 1010 ME9 PO; +VISBIOME 112.51 EACH PO
[2023-11-07 13:24] LABS: BASOPHILS ABSOLUTE AUTO 0.06 K/mm3 (0.00-0.23); BASOPHILS PERCENT AUTO 1 % (0-2); EOSINOPHILS ABSOLUTE AUTO 0.06 K/mm3 (0.00-0.68); EOSINOPHILS PERCENT AUTO 1 % (0-6); Hematocrit 44.6 % (37.0-53.0); Hemoglobin 15.4 g/dL (13.5-17.5); IMMATURE GRAN ABSOLUTE AUTO 0.09 K/mm3 (0.00-0.10); IMMATURE GRAN PERCENT AUTO 1 % (0-1); LYMPHOCYTES ABSOLUTE AUTO 1.81 K/mm3 (0.84-5.20); LYMPHOCYTES PERCENT AUTO 14 % (21-46); MONOCYTES ABSOLUTE AUTO 0.73 K/mm3 (0.16-1.47); MONOCYTES PERCENT AUTO 6 % (4-13); Mean Corpuscular HGB 28.5 pg (26.0-34.0); Mean Corpuscular HGB Conc 34.5 g/dL (31.5-36.5); Mean Corpuscular Volume 82 fL (80-100); Mean Platelet Volume 9.8 fL (9.1-12.4); NEUTROPHILS ABSOLUTE AUTO 9.85 K/mm3 (1.96-9.15); NEUTROPHILS PERCENT AUTO 78 % (41-73); Platelet Count 482 K/mm3 (150-400); RDW Coefficient Variation 13.2 % (11.7-14.2); RDW Standard Deviation 39.6 fL (35.1-46.3); Red Blood Cell Count 5.41 M/mm3 (4.30-5.90)
[2023-11-07 13:50] LABS: Albumin, Blood 3.3 g/dL (3.4-5.0); Albumin/Globulin Ratio 0.6 (0.8-1.8); Bilirubin, Total 0.3 mg/dL (0.1-1.0); Bun/Creatinine Ratio 14.8 (12.0-20.0); Calcium, Blood 9.9 mg/dL (8.5-10.1); Creatinine, Blood 1.42 mg/dL (0.60-1.20); Globulin, Blood 5.4 g/dL (2.2-4.0); Potassium, Blood 3.7 mmol/L (3.5-5.5); Total Protein, Blood 8.7 g/dL (6.4-8.2)
[2023-11-07 17:00] VITALS: BP 159/92
[2023-11-07] MEDS ORDERED: Vibramycin100 MG PO (17:00)
== END 2023-11-07 17:22 | disposition home or self-care (01) ==
LOC: ER 11:48
PROVIDERS: Physician Assistant
DX: L03.115 Cellulitis of right lower limb (principal); I10 Essential (primary) hypertension; Z79.899 Other long term (current) drug therapy
CPT/HCPCS: 73701; 80053; 85025; 90471; 90714; 99285-25; A9270; Q9967

== ENCOUNTER → 2023-11-11 | Outpatient (CLI) | payer OTHER ==
[~2023-11-11] MED LIST changes: +Vibramycin100 MG PO
[2023-11-19 22:33] LABS: Albumin, Blood 3.8 g/dL (3.4-5.0); Albumin/Globulin Ratio 0.8 (0.8-1.8); Bilirubin, Total 0.4 mg/dL (0.1-1.0); Bun/Creatinine Ratio 14.4 (12.0-20.0); Calcium, Blood 9.8 mg/dL (8.5-10.1); Creatinine, Blood 1.39 mg/dL (0.60-1.20); Globulin, Blood 4.7 g/dL (2.2-4.0); Potassium, Blood 4.3 mmol/L (3.5-5.5); Total Protein, Blood 8.5 g/dL (6.4-8.2)
== END ==
LOC: LAB 13:07 → LAB SHORT 13:07
PROVIDERS: Family Medicine
DX: I10 Essential (primary) hypertension (principal)
CPT/HCPCS: 80053

== ENCOUNTER 2024-06-17 19:28 | Inpatient (IN) | payer OTHER ==
[~2024-06-17] VITALS: Ht 182.9 cm; Wt 111.1 kg
[2024-06-17] MEDS ORDERED: Ondansetron HCl 2 MG / ML 2ML Vial IV PRN (19:45)
[2024-06-17 20:11] LABS: BASOPHILS ABSOLUTE AUTO 0.06 K/mm3 (0.00-0.23); BASOPHILS PERCENT AUTO 0 % (0-2); EOSINOPHILS ABSOLUTE AUTO 0.14 K/mm3 (0.00-0.68); EOSINOPHILS PERCENT AUTO 1 % (0-6); Hematocrit 52.9 % (37.0-53.0); Hemoglobin 18.8 g/dL (13.5-17.5); IMMATURE GRAN ABSOLUTE AUTO 0.05 K/mm3 (0.00-0.10); IMMATURE GRAN PERCENT AUTO 0 % (0-1); LYMPHOCYTES PERCENT AUTO 12 % (21-46); MONOCYTES PERCENT AUTO 7 % (4-13); Mean Corpuscular HGB 28.7 pg (26.0-34.0); Mean Corpuscular HGB Conc 35.5 g/dL (31.5-36.5); Mean Corpuscular Volume 81 fL (80-100); Mean Platelet Volume 9.6 fL (9.1-12.4); NEUTROPHILS ABSOLUTE AUTO 11.05 K/mm3 (1.96-9.15); NEUTROPHILS PERCENT AUTO 80 % (41-73); Platelet Count 446 K/mm3 (150-400); RDW Coefficient Variation 14.1 % (11.7-14.2); RDW Standard Deviation 39.7 fL (35.1-46.3); Red Blood Cell Count 6.56 M/mm3 (4.30-5.90)
[2024-06-17 20:31] LABS: Albumin, Blood 4.7 g/dL (3.4-5.0); Albumin/Globulin Ratio 1.1 (0.8-1.8); Bilirubin, Total 0.7 mg/dL (0.1-1.0); Bun/Creatinine Ratio 8.3 (12.0-20.0); Creatinine, Blood 4.56 mg/dL (0.60-1.20); Globulin, Blood 4.4 g/dL (2.2-4.0); Total Protein, Blood 9.1 g/dL (6.4-8.2)
[2024-06-17] MEDS ORDERED: NS 1,000 ML IV SCH (22:15)
[2024-06-17] MEDS ORDERED: LOSARTAN-HCTZ1 EAC5 PO (22:30)
[2024-06-17] MEDS ORDERED: AMLODIPINE BESY10 MG PO (22:30)
[2024-06-17] MEDS ORDERED: Morphine Sulfate 4 MG/1 ML Injection IV ONE (22:45)
[2024-06-17 22:52] LABS: Campylobacter Sp Not Detected (NOT DETECT)
[2024-06-17 22:53] LABS: Adenovirus F 40/41 Not Detected (NOT DETECT); Astrovirus Not Detected (NOT DETECT); Cryptosporidium Not Detected (NOT DETECT); Cyclospora Cayetanensis Not Detected (NOT DETECT); E. Coli O157 Not Detected (NOT DETECT); Entamoeba Histolytica Not Detected (NOT DETECT); Enteroaggregative E. coli-EAEC Not Detected (NOT DETECT); Enteropathogenic E. coli-EPEC Not Detected (NOT DETECT); Enterotoxigenic E. coli-ETEC Not Detected (NOT DETECT); Giardia Lamblia Not Detected (NOT DETECT); Norovirus GI/GII Not Detected (NOT DETECT); Plesiomonas Shigelloides Not Detected (NOT DETECT); Rotavirus A Not Detected (NOT DETECT); Salmonella Sp Not Detected (NOT DETECT); Sapovirus Not Detected (NOT DETECT); Shiga Toxin-prod E. coli-STEC Not Detected (NOT DETECT); Shigella/Enteroin E. coli-EIEC Not Detected (NOT DETECT); Vibrio Cholerae Not Detected (NOT DETECT); Vibrio Sp Not Detected (NOT DETECT); Yersinia Enterocolitica Not Detected (NOT DETECT)
[2024-06-18] MEDS ORDERED: Vancomycin HCl 125 MG Cap PO ONE (01:50)
[2024-06-18] MEDS ORDERED: NS 1,000 ML IV SCH ×3 (01:55→07:35)
[2024-06-18] MEDS ORDERED: Vancomycin HCl 125 MG Cap PO SCH (06:00)
[2024-06-18] MEDS ORDERED: Ondansetron 4 MG SoluTab SL PRN (07:30)
[2024-06-18] MEDS ORDERED: Morphine Sulfate 4 MG/1 ML Injection IV PRN (07:35)
[2024-06-18] MEDS ORDERED: Potassium Chloride 20 MEQ TabCR PO ONE ×2 (07:40→15:55)
[2024-06-18] MEDS ORDERED: Potassium Chl 20MEQ/Water100ML 100 ML IV ONE (07:40)
[2024-06-18] MEDS ORDERED: AmLODIPine Besylate 5 MG Tab PO SCH ×2 (09:00)
[2024-06-18] MEDS ORDERED: Enoxaparin 40 MG/0.4 ML SYR SC SCH (09:00)
[2024-06-18 11:01] VITALS: BP 138/81
[2024-06-18 11:58] LABS: Bun/Creatinine Ratio 13.3 (12.0-20.0); Calcium, Blood 8.1 mg/dL (8.5-10.1); Creatinine, Blood 2.85 mg/dL (0.60-1.20); Potassium, Blood 3.1 mmol/L (3.5-5.5)
[2024-06-18] MEDS ORDERED: HydrALAZINE HCl 25 MG Tab PO SCH (13:00)
[2024-06-18 14:52] VITALS: BP 140/70
--- NOTE | 2024-06-18 16:45 | NUR ---
REPORT RECEIVED VERIFIED PT A/O VSS ARRIVED ON FLOOR WITH IV TO R AC INFUSING NS @200 X 2 BAGS HANGING. NO C/O PAIN NO DISTRESS, FAMILY AT BEDSIDE. ENC PT TO USE URINAL WHEN HE FIRST WENT. ABOUT 600ML DARK YELLOW URINE. ADMISSION DATA BASE DONE SKIN INTACT. PT CAN MAKE NEEDS KNOWN.
[2024-06-18 19:41] VITALS: BP 155/84
[2024-06-18] MEDS ORDERED: Lactobacil 2-S.Thermo-Bifido 1 1 Cap PO SCH (21:00)
[2024-06-18 23:44] VITALS: BP 155/82
[2024-06-19 03:38] VITALS: BP 138/75
--- NOTE | 2024-06-19 04:58 | NUR ---
pT PLEASANT AND COOPERATIVE. ALERT AND ORIENTED X4. SELF CARE UP TO BR INDEPENDENTLY. RESTING QUIETLY THROUGH THE NIGHT.
[2024-06-19 06:04] LABS: BASOPHILS ABSOLUTE AUTO 0.03 K/mm3 (0.00-0.23); BASOPHILS PERCENT AUTO 0 % (0-2); EOSINOPHILS ABSOLUTE AUTO 0.25 K/mm3 (0.00-0.68); EOSINOPHILS PERCENT AUTO 4 % (0-6); Hematocrit 42.6 % (37.0-53.0); IMMATURE GRAN ABSOLUTE AUTO 0.02 K/mm3 (0.00-0.10); IMMATURE GRAN PERCENT AUTO 0 % (0-1); LYMPHOCYTES ABSOLUTE AUTO 1.81 K/mm3 (0.84-5.20); LYMPHOCYTES PERCENT AUTO 26 % (21-46); MONOCYTES ABSOLUTE AUTO 0.62 K/mm3 (0.16-1.47); MONOCYTES PERCENT AUTO 9 % (4-13); Mean Corpuscular HGB 28.9 pg (26.0-34.0); Mean Corpuscular HGB Conc 35.2 g/dL (31.5-36.5); Mean Corpuscular Volume 82 fL (80-100); Mean Platelet Volume 9.5 fL (9.1-12.4); NEUTROPHILS ABSOLUTE AUTO 4.14 K/mm3 (1.96-9.15); NEUTROPHILS PERCENT AUTO 60 % (41-73); Platelet Count 293 K/mm3 (150-400); RDW Coefficient Variation 13.6 % (11.7-14.2); RDW Standard Deviation 40.3 fL (35.1-46.3); Red Blood Cell Count 5.19 M/mm3 (4.30-5.90); White Blood Cell Count 6.87 K/mm3 (4.00-11.30)
[2024-06-19 06:28] LABS: Bun/Creatinine Ratio 18.6 (12.0-20.0); Calcium, Blood 8.8 mg/dL (8.5-10.1); Creatinine, Blood 1.56 mg/dL (0.60-1.20); Potassium, Blood 3.4 mmol/L (3.5-5.5)
[2024-06-19] MEDS ORDERED: Potassium Chloride 20 MEQ TabCR PO ONE (07:45)
[2024-06-19 07:50] VITALS: BP 168/89
[2024-06-19] MEDS ORDERED: Potassium Chloride 10 Meq Tablet SA PO ONE (10:05)
[2024-06-19] MEDS ORDERED: Potassium Chloride 20 MEQ TabCR PO SCH (10:29)
--- NOTE | 2024-06-19 14:32 | NUR ---
PT AWAKE AT START OF SHIFT. A&O, PLEASANT AND CO-OP WITH CARE. UP INDEPENDENTLY IN RM AND TO BTHRM. ADMITTED FOR ENTERITIS AND SHARLENE; RESOLVING. DR THURMAN AND DR GOFF IN TO SEE PT AND DISCUSS PLAN OF CARE. PT ABLE TO D/C TO HOME. NO NEW MEDS ORDERED. D/C INSTRUCTIONS REVIEWED WITH PT; VERBALIZED UNDERSTANDING. PT CALLED FOR [place] HOME. PT ASSISTED OUT VIA W/C WITH ALL BELONGINGS.
== END 2024-06-19 13:38 | disposition home or self-care (01) | DRG 871 ==
LOC: ER 19:28 → ERHOLD 19:29 → MEDS 06-18 10:55 → ENPENDDIS 06-19 10:38 → MEDS 06-19 13:38
PROVIDERS: Student in an Organized Health Care Education/Training Program; ADMIT Family Medicine
DX: A41.89 Other specified sepsis (principal); G92.9 Unspecified toxic encephalopathy; N17.9 Acute kidney failure, unspecified; N30.00 Acute cystitis without hematuria; E87.1 Hypo-osmolality and hyponatremia; A08.4 Viral intestinal infection, unspecified; E87.6 Hypokalemia; E78.5 Hyperlipidemia, unspecified; D75.1 Secondary polycythemia; R65.20 Severe sepsis without septic shock; E86.0 Dehydration; I12.9 Hypertensive chronic kidney disease with stage 1 through stage 4 chronic kidney disease, or unspecified chronic kidney disease; N18.2 Chronic kidney disease, stage 2 (mild); G47.30 Sleep apnea, unspecified; D35.01 Benign neoplasm of right adrenal gland; K82.8 Other specified diseases of gallbladder; M54.9 Dorsalgia, unspecified; I25.2 Old myocardial infarction; Z87.442 Personal history of urinary calculi; E66.9 Obesity, unspecified; Z79.899 Other long term (current) drug therapy; Z68.33 Body mass index [BMI] 33.0-33.9, adult
CPT/HCPCS: 36415; 74176; 80048; 80053; 83605; 83690; 85025; 87040; 87324; 87507; 93005; 93010; 96361; 96365; 96366; 96372-59; 96375; 99285-25; A9270; J1650; J2270; J2405; J3480; J7030

== ENCOUNTER → 2024-06-23 | Outpatient (CLI) | payer OTHER ==
[~2024-06-23] MED LIST changes: +AMLODIPINE BESY10 MG PO; +LOSARTAN-HCTZ1 EAC5 PO
[2024-06-23 15:47] LABS: BASOPHILS ABSOLUTE AUTO 0.05 K/mm3 (0.00-0.23); BASOPHILS PERCENT AUTO 1 % (0-2); EOSINOPHILS ABSOLUTE AUTO 0.21 K/mm3 (0.00-0.68); EOSINOPHILS PERCENT AUTO 2 % (0-6); Hematocrit 42.8 % (37.0-53.0); Hemoglobin 14.9 g/dL (13.5-17.5); IMMATURE GRAN ABSOLUTE AUTO 0.05 K/mm3 (0.00-0.10); IMMATURE GRAN PERCENT AUTO 1 % (0-1); LYMPHOCYTES ABSOLUTE AUTO 1.89 K/mm3 (0.84-5.20); LYMPHOCYTES PERCENT AUTO 22 % (21-46); MONOCYTES ABSOLUTE AUTO 0.49 K/mm3 (0.16-1.47); MONOCYTES PERCENT AUTO 6 % (4-13); Mean Corpuscular HGB 28.4 pg (26.0-34.0); Mean Corpuscular HGB Conc 34.8 g/dL (31.5-36.5); Mean Corpuscular Volume 82 fL (80-100); Mean Platelet Volume 10.5 fL (9.1-12.4); NEUTROPHILS ABSOLUTE AUTO 5.97 K/mm3 (1.96-9.15); NEUTROPHILS PERCENT AUTO 69 % (41-73); Platelet Count 365 K/mm3 (150-400); RDW Coefficient Variation 13.3 % (11.7-14.2); RDW Standard Deviation 39.1 fL (35.1-46.3); Red Blood Cell Count 5.25 M/mm3 (4.30-5.90); White Blood Cell Count 8.66 K/mm3 (4.00-11.30)
[2024-06-23 16:17] LABS: Albumin, Blood 3.6 g/dL (3.4-5.0); Bilirubin, Total 0.2 mg/dL (0.1-1.0); Bun/Creatinine Ratio 17.8 (12.0-20.0); Calcium, Blood 9.4 mg/dL (8.5-10.1); Creatinine, Blood 1.07 mg/dL (0.60-1.20); Globulin, Blood 3.5 g/dL (2.2-4.0); Potassium, Blood 3.3 mmol/L (3.5-5.5); Thyroid Stimulating Hormone 1.02 uIU/mL (0.360-4.800); Total Protein, Blood 7.1 g/dL (6.4-8.2)
[2024-06-23 17:27] LABS: Protein, Urine Random 15.3 mg/dL (0.0-11.9); Protein/Creat Ratio, Ur Random 0.1
[2024-06-25 04:58] LABS: TISSUE TRANSGLUTAMINAS TTG,IGA <1.02 FLU (0.00-4.99)
== END | disposition home or self-care (01) ==
LOC: LAB 13:01 → LAB SHORT 13:01
PROVIDERS: Family Medicine
DX: A08.4 Viral intestinal infection, unspecified (principal); I1A.0 Resistant hypertension; R19.7 Diarrhea, unspecified
CPT/HCPCS: 80053; 82570; 84156; 84443; 85025; 86364